=== PATIENT | female | born 1985 | race American Indian/Alaskan Native ===

== ENCOUNTER 2016-08-08 14:20 | Emergency (ER) | payer MEDICAID ==
[2016-08-08 14:34] VITALS: BP 117/74; PULSE 88; RESP 20; TEMP 98.7; O2SAT 98
--- NOTE | 2016-08-08 15:27 | ED PDOC ---
HPI: Female Pain Time Seen by Provider: 08/08/16 14:24 Chief Complaint (Nursing): Abdominal Pain Chief Complaint (Provider): Vaginal bleeding in History Per: Patient History/Exam Limitations: no limitations Onset/Duration Of Symptoms: Hrs Current Symptoms Are (Timing): Better Severity: Mild Quality Of Discomfort: Dull Additional Complaint(s): Pt states she has been having right sided pevlic pain on/off for awhile. States she was daignoed with an ovarian cyst and was supposed to have surgery in july when she found out she was . PT is 8 weeks and states she felt the pain today on the right side but was also having vaginal spotting which was brownish in color. PT states she was seen in [facility] and had labs drawn last week. Abnormal Vaginal Bleeding: Yes Last Menstral Period: 06/13/16 : 6 Para: 2 Miscarriage: 3 Past Medical History Reviewed: Historical Data, Nursing Documentation, Vital Signs Vital Signs: Last Vital Signs Temp 98.7 F 08/08/16 14:32 Pulse 88 08/08/16 14:32 Resp 20 08/08/16 14:32 BP 117/74 08/08/16 14:32 Pulse Ox 98 08/08/16 14:32 - Medical History PMH: Anemia Denies: Chronic Kidney Disease - Surgical History Surgical History: No Surg Hx - Family History Family History: States: Hypertension - Living Arrangements Living Arrangements: With Family - Social History Current smoker - smoking cessation education provided: No Alcohol: None Drugs: Denies - Home Medications Home Medications: Ambulatory Orders Medication Instructions Recorded Nitrofurantoin Macrocrystals 100 mg PO BID #14 cap 04/29/16 [Macrobid] oxyCODONE/Acetaminophen [Percocet 1 tab PO Q6H PRN #15 tab 04/29/16 5/325 mg Tab] Ibuprofen [Motrin Tab] 800 mg PO TID 04/30/16 - Allergies Allergies/Adverse Reactions: Allergies Allergy/AdvReac Type Severity Reaction Status Date / Time No Known Allergies Allergy Verified 04/30/16 12:00 Review of Systems ROS Statement: Except As Marked, All Systems Reviewed And Found Negative Genitourinary Female: Positive for: Vaginal Bleeding Physical Exam - Reviewed Nursing Documentation Reviewed: Yes Vital Signs Reviewed: Yes - Physical Exam Appears: Positive for: Well, Non-toxic, No Acute Distress Head Exam: Positive for: ATRAUMATIC, NORMAL INSPECTION, NORMOCEPHALIC Skin: Positive for: Normal Color, Warm, DRY Eye Exam: Positive for: Normal appearance ENT: Positive for: Normal ENT Inspection Neck: Positive for: Normal, Painless ROM Cardiovascular/Chest: Positive for: Regular Rate, Rhythm Respiratory: Positive for: CNT, Normal Breath Sounds Gastrointestinal/Abdominal: Positive for: Normal Exam, Bowel Sounds, Soft. Negative for: Tenderness Back: Positive for: Normal Inspection Extremity: Positive for: Normal ROM Neurologic/Psych: Positive for: Alert, Oriented - Laboratory Results Result Diagrams: 08/08/16 15:32 08/08/16 15:32 Urine POC: Positive Urine dip results: Negative for: Leukocyte Esterase, Blood, Nitrate, Ketones, Glucose, Bilirubin, Protein - ECG O2 Sat by Pulse Oximetry: 98 Pulse Ox Interpretation: Normal Disposition - Clinical Impression Clinical Impression: Vaginal bleeding in - Patient ED Disposition Is Patient to be Admitted: No - Disposition [facility] Disposition: Routine/Home Disposition Time: 17:20 Condition: GOOD Additional Instructions: Follow-up with your OB. Instructions: Ovarian Cyst (ED), at 7 to 10 Weeks (ED)
[2016-08-08 15:37] LABS: HEMATOCRIT 34.8 % (34.0-47.0); MEAN CORPUSCULAR HEMOGLOBIN 24.2 pg (27.0-31.0); MEAN CORPUSCULAR HGB CONC 32.1 g/dL (33.0-37.0); RED CELL DISTRIBUTION WIDTH 17.2 % (11.5-14.5); WHITE BLOOD COUNT 7.9 K/uL (4.8-10.8)
[2016-08-08 15:42] LABS: MEAN CELL VOLUME 75.5 fl (81.0-99.0)
[2016-08-08 15:54] LABS: ALB/GLOB RATIO 1.2 (1.0-2.1); ALKALINE PHOSPHATASE 34 U/L (38-126); ALT/SGPT 23 U/L (9-52); AST/SGOT 21 U/L (14-36); BILIRUBIN,TOTAL 0.3 mg/dl (0.2-1.3); BLOOD UREA NITROGEN 9 mg/dl (7-17); CALCIUM 9.5 mg/dL (8.4-10.2); CARBON DIOXIDE 22 mmol/L (22-30); CHLORIDE 105 mmol/L (98-107); GFR AFRICAN-AMERICAN > 60; GLUCOSE,RANDOM 113 mg/dL (65-105); SODIUM 138 mmol/l (132-148); TOTAL PROTEIN 7.1 G/DL (6.3-8.2)
--- NOTE | 2016-08-08 16:44 | US ---
PROCEDURE: HISTORY: right sided pain, 8 weeks COMPARISON: TECHNIQUE: FINDINGS: Single live intrauterine gestation with crown-rump length measuring 1.4 cm corresponding to 7 weeks and 5 days. Right ovary measures 7.0 x 2.5 x 2.4 centimeters corresponding to 5.3 x 2.7 x 1.7 centimeters. Left ovary measures 2.3 x 1.0 x 2.2 centimeters. heart motion observed. IMPRESSION: Seven week 5 day intrauterine gestation. 5.3 centimeter right ovarian cyst.
== END 2016-08-08 17:29 | disposition home or self-care (01) ==
LOC: H.ER 14:20
DX: O46.90 Antepartum hemorrhage, unspecified, unspecified trimester (principal); N83.201 Unspecified ovarian cyst, right side; O26.891 Other specified pregnancy related conditions, first trimester; R10.9 Unspecified abdominal pain